=== PATIENT | female | born 1985 | race American Indian/Alaskan Native ===

== ENCOUNTER 2016-10-19 16:34 | Emergency (ER) | payer SELFPAY ==
[2016-10-19 16:53] VITALS: BP 127/58
--- NOTE | 2016-10-19 16:57 | Emergency Department Report ---
Stated Complaint: COUGH/CONGESTION/SORE THROAT Time Seen by Provider: 10/19/16 16:52 - HPI History of Present Illness: PT c/o cough since Tuesday. PT reports brown and green sputum. PT requesting a z-pack so she can go to work. PT states she has spots on her lungs and is getting a biopsy on Tuesday. PT states she has had four URIs this year. - ROS Review of Systems: + cough + productive sputum - Exam Vital Signs: Vital Signs 10/19/16 16:47 Temperature 98.5 F Pulse Rate 89 Respiratory 20 Rate Blood Pressure 127/58 O2 Sat by Pulse 100 Oximetry Physical Exam: pt looks well, non toxic no acute airway distress lungs diminished jose MSE screening note: Focused history and physical exam performed. Due to findings the following was ordered: xr- pt refused ED Disposition for MSE Condition: Stable
== END 2016-10-19 21:30 | disposition left against medical advice (07) ==
LOC: ED 16:34
DX: R05 Cough (principal); Z53.21 Procedure and treatment not carried out due to patient leaving prior to being seen by health care provider